=== PATIENT | male | born 1990 | race Caucasian/White ===

== ENCOUNTER 2017-01-31 21:07 | Emergency (ER) | payer OTHER ==
--- NOTE | 2017-01-31 21:18 | ED Physician Chart ---
Chief Complaint/HPI - Patient Information Date Seen:: 01/31/17 Time Seen:: 21:10 Chief Complaint:: anxiety History of Present Illness:: 26-year-old male complains of acute, constant, moderate, anxiety attack that started about 45 minutes ago when he was playing music at the [place] and asking for money. He says that he felt scared that there may be some early following him so he drove from [place] to here. Denies chest pain, palpitations, nausea, vomiting, headache, injury, pain, numbness, tingling, suicidal thoughts, suicidal ideations, intentions to hurt someone. Historian:: Patient Review:: Nurse's Note Reviewed Review of Systems - Review of Systems Other: Complete system review otherwise unremarkable except as noted in history of present illness. Past Medical History - Past Medical History Past Medical History: Other (anxiety) Family History: None Social History: Non Smoker, No Alcohol, No Drug Use Surgical History: None Psychiatricy History: None Medication: None Family Medical History - Family Member Mother History Unknown: Yes Physical Exam - Physical Examination Other:: INITIAL VITAL SIGNS: Reviewed by me GENERAL: Alert and interactive. No acute distress HEAD: Head is normocephalic and atraumatic EYES: EOMI. PERRL. No scleral icterus. No conjunctival injection ENT: Moist mucous membranes. NECK: Supple. No masses. Full range of motion RESPIRATORY: No tachypnea. Clear breath sounds bilaterally. No wheezing, rales, or rhonchi CV: Regular rate and rhythm. No murmurs, rubs, or gallops ABDOMEN: Soft, non-distended, non-tender. No guarding. No rebound. No masses. EXTREMITIES: No deformity. No cyanosis. No edema. SKIN: Warm and dry. No obvious rashes. NEUROLOGIC: Alert and oriented. Face is symmetric. Speech is normal. Moves all extremities equally. Motor and sensory distally intact. ED Septic Shock - . Is Septic Shock (SBP<90, OR Lactate>4 mmol\L) present?: No Reassessment (Disposition) - Reassessment Reassessment:: 26-year-old male comes in with anxiety. No signs of tachycardia complaints of palpitations. Patient is driving and wishes to drive himself tonight. He was allowed to stay here in the ER for about one hour. Over that time his anxiety dissipated. We gave him return to ER precautions. We gave him recommendations to follow up with a primary care provider within one to 2 days. Says he understands and agrees the plan. Reassessment Condition:: Improved - Diagnosis Diagnosis:: Acute anxiety attack Elevated blood pressure without diagnosis of hypertension - Aftercare/Follow up Instructions Aftercare/Follow-Up Instructions:: Counseled pt regarding lab results/diagnosis & need follow up, Refer to Discharge Instructions - Patient Disposition Discharge/Transfer:: Home Time:: 21:34 Condition at Disposition:: Improved ED Discharge Plan - Patient Disposition Admit/Discharge/Transfer: PT DISCHARGED HOME Condition at Disposition: Improved Instructions: Anxiety and Panic Attacks, [id number]
== END 2017-01-31 22:48 | disposition home or self-care (01) ==
LOC: ER 21:07
DX: F41.9 Anxiety disorder, unspecified (principal); R03.0 Elevated blood-pressure reading, without diagnosis of hypertension
CPT/HCPCS: Z7502